=== PATIENT | male | born 1970 | race Caucasian/White ===

== ENCOUNTER 2017-10-15 15:17 | Emergency (ER) | payer MEDICARE, OTHER ==
[2017-10-15 15:23] VITALS: RESP 16
--- NOTE | 2017-10-15 17:01 | ED PDOC ---
HPI: Psych/Substance Abuse Time Seen by Provider: 10/15/17 15:37 Chief Complaint (Nursing): Substance Abuse Chief Complaint (Provider): Substance Abuse History Per: Patient, EMS History/Exam Limitations: no limitations Onset/Duration Of Symptoms: Other (prior to arrival) Current Symptoms Are (Timing): Still Present Additional Complaint(s): 47 year old male, with a past medical history of back pain, who was brought to the ED by EMS due to possible heroin or narcotic abuse. Per EMS, patient was found sleeping on the street. Patient denies any drug use, but reports taking an unknown amount of Percocet for back pain. PMD: Provider TBAngela Past Medical History Reviewed: Historical Data, Nursing Documentation, Vital Signs Vital Signs: Last Vital Signs Temp 98.4 F 10/15/17 15:19 Pulse 122 H 10/15/17 15:19 Resp 16 10/15/17 15:19 BP 165/79 H 10/15/17 15:19 Pulse Ox 94 L 10/15/17 15:19 - Medical History PMH: Asthma, Back Problems (Back Pain) Denies: Diabetes, Hepatitis, HIV, HTN, Seizures, Sexually Transmitted Disease - Surgical History Surgical History: No Surg Hx - Family History Family History: States: Unknown Family Hx - Social History Current smoker - smoking cessation education provided: Yes Alcohol: None Drugs: Denies - Immunization History Hx Tetanus Toxoid Vaccination: Yes Hx Influenza Vaccination: Yes Hx Pneumococcal Vaccination: No - Home Medications Home Medications: Ambulatory Orders Medication Instructions Recorded Mirtazapine [Remeron] 15 mg PO HS #30 tab 08/07/17 QUEtiapine [Seroquel] 100 mg PO HS #30 tab 08/07/17 Fluoxetine HCl [Prozac] 40 mg PO DAILY 09/10/17 FLUoxetine [Prozac] 20 mg PO DAILY #30 cap 09/14/17 QUEtiapine [SEROquel] 50 mg PO HS #30 tab 09/14/17 hydrOXYzine HCl [Atarax] 50 mg PO HS #30 tab 09/14/17 - Allergies Allergies/Adverse Reactions: Allergies Allergy/AdvReac Type Severity Reaction Status Date / Time shrimp Allergy Intermediate [id number] Verified 09/10/17 21:49 Review of Systems ROS Statement: Except As Marked, All Systems Reviewed And Found Negative Physical Exam - Reviewed Nursing Documentation Reviewed: Yes Vital Signs Reviewed: Yes - Physical Exam Appears: Positive for: Well, Non-toxic, No Acute Distress Head Exam: Positive for: ATRAUMATIC, NORMAL INSPECTION, NORMOCEPHALIC Skin: Positive for: Normal Color, Warm, Dry. Negative for: Rash Eye Exam: Positive for: Normal appearance, EOMI, PERRL (Pinpoint) Neck: Positive for: Normal, Painless ROM, Supple Cardiovascular/Chest: Positive for: Regular Rate, Rhythm. Negative for: Murmur Respiratory: Positive for: Normal Breath Sounds. Negative for: Respiratory Distress Gastrointestinal/Abdominal: Positive for: Normal Exam, Bowel Sounds, Soft. Negative for: Tenderness Extremity: Positive for: Normal ROM. Negative for: Pedal Edema, Deformity Neurologic/Psych: Positive for: Alert, Oriented (x3). Negative for: Motor/ Sensory Deficits - Laboratory Results Result Diagrams: 10/15/17 16:46 10/15/17 16:46 - ECG O2 Sat by Pulse Oximetry: 94 (RA) - Progress Re-evaluation Time: 18:50 Condition: Re-examined, Improved Medical Decision Making Medical Decision Making: Time: 16:34 Initial Impression: Narcotic abuse, intoxication Plan: --EKG --Acetaminophen Screen --Alcohol serum --CMP --Urine drug screen --Salicylate --CBC w/ differential --House Admin --1:1 Observation --Monitor for sobriety --Reevaluation EKG Findings: --Sinus tachycardia --Possible Left atrial enlargement --Left axis deviation --Pulmonary disease pattern --Incomplete right bundle branch block --Abnormal ECG Scribe Attestation: Documented by Obdulio Bassett acting as a scribe for Jaime Arce MD. MD Torresibjen Attestation: All medical record entries made by the Scribe were at my direction and personally dictated by me. I have reviewed the chart and agree that the record accurately reflects my personal performance of the history, physical exam, medical decision making, and the department course for this patient. I have also personally directed, reviewed, and agree with the discharge instructions and disposition. Disposition - Clinical Impression Clinical Impression: Heroin abuse - Patient ED Disposition Is Patient to be Admitted: No Doctor Will See Patient In The: Office Counseled Patient/Family Regarding: Studies Performed, Diagnosis, Need For Followup - Disposition Referrals: [facility] [Outside] Disposition: Routine/Home Disposition Time: 18:54 Condition: GOOD Instructions: Narcotic Abuse (ED)
[2017-10-15 17:58] LABS: ALB/GLOB RATIO 1.4 (1.0-2.1); ALBUMIN 4.6 g/dL (3.5-5.0); ALT/SGPT 99 U/L (21-72); AST/SGOT 86 U/L (17-59); BLOOD UREA NITROGEN 21 mg/dl (9-20); GFR AFRICAN-AMERICAN > 60; GFR NON-AFRICAN AMERICAN > 60
[2017-10-15 18:00] LABS: ACETAMINOPHEN < 10.0 ug/ml (10.0-30.0); SALICYLATE < 1.0 mg/dl
[2017-10-15 18:09] LABS: BARBITURATES, UR NEGATIVE (NEGATIVE); BENZODIAZEPINES, UR NEGATIVE (NEGATIVE); PHENCYCLIDINE, UR NEGATIVE (NEGATIVE)
[2017-10-15 18:14] LABS: OPIATES, UR POSITIVE (NEGATIVE)
[2017-10-15 18:17] LABS: BASO % 0.2 % (0.0-2.0); EOS % 0.3 % (0.0-4.0); HEMOGLOBIN 13.8 g/dL (12.0-18.0); LYMPH # 1.1 K/uL (1.0-4.3); LYMPH % 14.2 % (20.0-40.0); MEAN CELL VOLUME 96.2 fl (80.0-94.0); MEAN CORPUSCULAR HEMOGLOBIN 32.5 pg (27.0-31.0); MEAN CORPUSCULAR HGB CONC 33.8 g/dL (33.0-37.0); MEAN PLATELET VOLUME 7.9 fl (7.2-11.7); MONO # 0.5 K/uL (0.0-0.8); MONO % 6.6 % (0.0-10.0); NEUT # 6.1 K/uL (1.8-7.0); NEUT % 78.7 % (50.0-75.0); NRBC % 0.1 % (0.0-0.0); RBC 4.24 Mil/uL (4.40-5.90); RED CELL DISTRIBUTION WIDTH 13.9 % (11.5-14.5); WHITE BLOOD COUNT 7.7 K/uL (4.8-10.8)
[2017-10-15 19:05] VITALS: BP 130/82; PULSE 107; TEMP 98
--- NOTE | 2017-10-16 08:19 | CARD ---
APPROVED REPORT EKG Measurement Heart [id number] [id number] <Conclusion> Sinus tachycardia Possible Left atrial enlargement Left axis deviation Incomplete right bundle branch block Abnormal ECG
[2017-10-16 15:09] VITALS: O2SAT 94
== END 2017-10-15 19:05 | disposition home or self-care (01) ==
LOC: H.ER 15:17
DX: F11.10 Opioid abuse, uncomplicated (principal)
CPT/HCPCS: 80053; 85025; 93005; 99282; G0480